=== PATIENT | female | born 1950 | race Caucasian/White ===

== ENCOUNTER → 2016-10-09 | Outpatient (CLI) | payer OTHER ==
[2016-10-09 12:43] LABS: ABSOLUTE BASOPHILS # (AUTO) 0.1 10^3/uL (0.0-0.2); ABSOLUTE EOSINOPHILS # (AUTO) 0.1 10^3/uL (0.0-0.6); ABSOLUTE LYMPHOCYTES (AUTO) 1.5 10^3/uL (0.5-4.7); ABSOLUTE MONOCYTES (AUTO) 0.7 10^3/uL (0.1-1.4); BASOPHILS % (AUTO) 0.9 % (0-2); EOSINOPHILS % (AUTO) 0.9 % (0-6); HEMATOCRIT 42.4 % (36.0-47.0); HEMOGLOBIN 14.1 g/dL (12.0-15.5); HGB HCT DIFFERENCE -0.1; LYMPHOCYTES % (AUTO) 20.7 % (13-45); MEAN CORPUSCULAR HGB CONC 33.1 g/dL (32.0-36.0); MEAN CORPUSCULAR VOLUME 91 fl (80-97); MONOCYTES % (AUTO) 9.3 % (3-13); RED BLOOD COUNT 4.68 10^6/uL (3.72-5.28); RED CELL DISTRIBUTION WIDTH 14.3 % (11.5-14.0); SEGMENTED NEUTROPHILS % (AUTO) 68.2 % (42-78); WHITE BLOOD COUNT 7.3 10^3/uL (4.0-10.5)
[2016-10-09 12:56] LABS: ANION GAP 17 (5-19); BLOOD UREA NITROGEN 15 mg/dL (7-20); CALCIUM 9.4 mg/dL (8.4-10.2); CARBON DIOXIDE 20 mmol/L (22-30); CHLORIDE 94 mmol/L (98-107); CREATININE RESULT 1.16 mg/dL (0.52-1.25); GLUCOSE 71 mg/dL (75-110); POTASSIUM 5.4 mmol/L (3.6-5.0); SODIUM 131.3 mmol/L (137-145)
== END ==
LOC: OD 11:34
PROVIDERS: ATTEND Surgery
DX: Z01.812 Encounter for preprocedural laboratory examination (principal); Z79.899 Other long term (current) drug therapy
CPT/HCPCS: 36415; 80048; 85025

== ENCOUNTER → 2019-10-21 | Outpatient (CLI) | payer OTHER ==
--- NOTE | 2019-10-21 09:24 | RADIOLOGY REPORT (SQ) ---
EXAM DESCRIPTION: CHEST PA/LATERAL COMPLETED DATE/TIME: 10/21/2019 9:04 am REASON FOR STUDY: ACUTE BRONCHITIS, UNSPECIFIED COMPARISON: None. EXAM PARAMETERS: NUMBER OF VIEWS: two views TECHNIQUE: Digital Frontal and Lateral radiographic views of the chest acquired. RADIATION DOSE: NA LIMITATIONS: none FINDINGS: LUNGS AND PLEURA: Hyperinflation of the lungs and some flattening of the diaphragms. Mil d prominence of the interstitial markings may be on a chronic basis. No acute pulmonary consolidatio n. No pneumothorax or pleural effusion. MEDIASTINUM AND HILAR STRUCTURES: No masses or contour abnormalities. HEART AND VASCULAR STRUCTURES: Heart normal size. No evidence for failure. BONES: No acute findings. HARDWARE: None in the chest. OTHER: No other significant finding. IMPRESSION: 1. Chronic mild prominence of the interstitial markings in the lungs may be on a chroni c basis. No acute pulmonary consolidation. TECHNICAL DOCUMENTATION: JOB ID: [id number] 2010 [employer]- All Rights Reserved Reading location - IP/workstation name: [email or web address]
== END ==
LOC: RAD 08:45
PROVIDERS: ATTEND Family Medicine
DX: J20.9 Acute bronchitis, unspecified (principal)
CPT/HCPCS: 71046

== ENCOUNTER 2020-03-24 10:19 | Inpatient (IN) | payer MEDICARE, OTHER ==
[2020-03-24] MEDS: NORMAL SALINE 1000 ML 1,000 ML IV PRN ×2 (10:28→11:05)
[2020-03-24] MEDS ORDERED: LORAZEPAM INJ 2 MG/1 ML VIAL IV ONE (10:31)
[2020-03-24] MEDS ORDERED: ETOMIDATE INJ/PF 20 MG/10 ML SDV IV ONE ×2 (10:55→20:40)
[2020-03-24] MEDS ORDERED: SUCCINYLCHOLINE CHLORIDE INJ 200 MG/10 ML VIAL IV ONE (10:55)
--- NOTE | 2020-03-24 10:59 | ER Document Report ---
ED General - General Stated Complaint: UNRESPONSIVE Time Seen by Provider: 03/24/20 10:51 Mode of Arrival: Medic Information source: Relative, Emergency Med Personnel Cannot obtain history due to: Unstable vital signs, Altered mental status Notes: Patient is a 69-year-old female presenting to the emergency department by EMS chief complaint of altered mental status. EMS state that they were called to the family house because of patient's altered mental status however when they got there patient was significantly bradycardic and was not maintaining her own airway they were successful in getting a 22-gauge IV but otherwise were not able to intubate the patient and were maintaining the patient in route. Family when they arrive state that the patient has been sick for the past week has had diarrhea after a change in her omeprazole. They state that the patient has become more agitated and less responsive until this morning the patient seemed to have a near syncopal event. There is been no sick contacts the patient has been quarantined at home for the past several months. Patient's daughter does state that the patient does still smoke but not near what she used to. Remainder of HPI and review of systems is unobtainable initially secondary to patient's condition. TRAVEL OUTSIDE OF THE [place] IN LAST 30 DAYS: No - HPI Onset: This morning Onset/Duration: Sudden Quality of pain: No pain Associated symptoms: Chills, Diarrhea, Shortness of breath, Slow to respond, Weakness Exacerbated by: Denies Relieved by: Denies Similar symptoms previously: Yes Recently seen / treated by doctor: No - Related Data Allergies/Adverse Reactions: Unable to Assess Allergy (Verified 03/24/20 13:31) Past Medical History - General Information source: Relative Cannot obtain history due to: Unstable vital signs, Altered mental status - Social History Smoking Status: Current Every Day Smoker Cigarette use (# per day): No Chew tobacco use (# tins/day): No Smoking Education Provided: No Frequency of alcohol use: None Drug Abuse: None Lives with: Family Family History: Other Patient has suicidal ideation: No Patient has homicidal ideation: No Review of Systems - Review of Systems -: Yes ROS unobtainable due to patient's medical condition Physical Exam - Vital signs Vitals: Resp 14 03/24/20 10:19 - Notes Notes: PHYSICAL EXAMINATION: GENERAL: Patient is a 69-year-old female appears older than stated age, presenting to the emergency department via EMS with unstable vital signs, bradycardia and low respiratory rate as well as altered mental status HEAD: Atraumatic, normocephalic. EYES: Conjunctiva are minimally injected ENT: nares patent, oropharynx clear without exudates. Tacky mucous membranes. NECK: Normal range of motion, supple without lymphadenopathy, no appreciable JVD LUNGS: Poor inspiratory expiratory effort HEART: Bradycardic rate ABDOMEN: Soft, nontender, absent bowel sounds. No guarding, no rebound. No masses appreciated. EXTREMITIES: Patient has 1+ edema to lower extremities, passive range of motion without crepitus distal fingers and toes are slightly cyanotic NEUROLOGICAL: [place] Coma Scale of 4 minimally responsive to noxious stimuli no obvious focal neuro deficit was able to be assessed there is no facial asymmetry appreciated SKIN: Pallorous distally cyanotic and cold to the touch Course - Re-evaluation Re-evalutation: 03/24/20 13:31 At time of presentation from EMS patient was transferred to hospital bed and cardiac rehabilitation program director is established. There was no spontaneous protection of the patient's airway and decision was made to electively intubate the patient using rapid sequence intubation. Patient was connected to pacemaker and being paced at 80 secondary to the severe bradycardia on presentation. Etomidate and succinylcholine were used for sedation and paralysis patient was successfully intubated on the first attempt using a 7.5 endotracheal tube with cough. Tube was secured by commercial device by respiratory at 21 cm at the gums. There was positive colorimetric change and condensation in the tube as well as positive lung sounds bilaterally. Patient was also found to be hypothermic and IV fluids were established using a fluid warmer. We did give the patient 1 mg of Ativan and soft restraints secondary to patient response to intubation. Because of the poor vasculature of the patient and the small size of IVs were obtained central line was placed by me to the right internal jugular vein. NG tube/OG tube was placed by nursing staff at my request as was a temperature Hammond catheter. Blood work was obtained and sent to the lab urine was sent. Portable chest x- ray was obtained. 03/24/20 13:39 At approximately 1144 nursing staff notified me that the patient was once again decompensating and her blood pressure was unobtainable. Visualization of cardiac movement with the ultrasound demonstrated a heart rate of less than 20 CPR was started. Patient was given 1 mg of atropine and subsequently 1 mg of epinephrine. At 1150 3 repeat pulse check was obtained with a return of spontaneous circulation. At this time the patient was once again placed on a pacer and we had obtained a heart rate of 66. Patient did receive 1 amp of glucose at 1158 secondary to lab showing a markedly low glucose level and patient started on 250 cc an hour of D5 LR. I did speak with the patient's daughter at great length advised her of the mother's severe condition and the fact that she would be moved to the intensive care unit and will be having her medical management taken care of there at this point. The daughter states that she wants her mother to be a full code. Daughter once again reiterated that she did not believe that the mother has been exposed to anyone with coronavirus. I have consulted with Dr. Vences several times during the course of caring for this patient he is agreeable with admission of the patient to the ICU. 03/24/20 13:43 Please see nurses notes for timing of medications, intubation and central line placement. - Vital Signs Vital signs: Temp Pulse Resp BP Pulse Ox 16 41/13 L 72 L 03/24/20 12:20 03/24/20 12:20 03/24/20 13:00 - Laboratory Result Diagrams: 03/24/20 10:32 03/24/20 10:32 Laboratory results interpreted by me: 03/24/20 03/24/20 03/24/20 10:32 10:32 10:32 WBC 27.4 H RBC 3.48 L Hgb 11.9 L MCV 114 H MCH 34.4 H MCHC 30.2 L RDW 21.9 H Seg Neuts % (Manual) 92 H Lymphocytes % (Manual) 3 L Monocytes % (Manual) 2 L Abs Neuts (Manual) 26.0 H Carbonic Acid ABG pH ABG pCO2 ABG HCO3 ABG Total CO2 ABG O2 Saturation Chloride 111 H Carbon Dioxide < 5 L* BUN 50 H Creatinine 3.41 H Est GFR ( Amer) 16 L Est GFR (MDRD) Non-Af 13 L Glucose 31 L* POC Glucose Lactic Acid AST 83 H Ammonia Creatine Kinase 1342 H CK-MB (CK-2) 18.10 H NT-Pro-B Natriuret Pep 03244 H Albumin 3.1 L Lipase 11305.4 H 03/24/20 03/24/20 03/24/20 11:03 11:03 11:35 WBC RBC Hgb MCV MCH MCHC RDW Seg Neuts % (Manual) Lymphocytes % (Manual) Monocytes % (Manual) Abs Neuts (Manual) Carbonic Acid 1.40 H ABG pH 6.64 L* ABG pCO2 46.4 H ABG HCO3 4.8 L ABG Total CO2 6.3 L ABG O2 Saturation 73.3 L Chloride Carbon Dioxide BUN Creatinine Est GFR ( Amer) Est GFR (MDRD) Non-Af Glucose POC Glucose Lactic Acid 3.3 H AST Ammonia 102.9 H Creatine Kinase CK-MB (CK-2) NT-Pro-B Natriuret Pep Albumin Lipase 03/24/20 12:35 WBC RBC Hgb MCV MCH MCHC RDW Seg Neuts % (Manual) Lymphocytes % (Manual) Monocytes % (Manual) Abs Neuts (Manual) Carbonic Acid ABG pH ABG pCO2 ABG HCO3 ABG Total CO2 ABG O2 Saturation Chloride Carbon Dioxide BUN Creatinine Est GFR ( Amer) Est GFR (MDRD) Non-Af Glucose POC Glucose 323 H Lactic Acid AST Ammonia Creatine Kinase CK-MB (CK-2) NT-Pro-B Natriuret Pep Albumin Lipase - Diagnostic Test Radiology reviewed: Reports reviewed - EKG Interpretation by Me EKG shows normal: Sinus rhythm Rate: Bradycardia Rhythm: NSR When compared to previous EKG there are: Previous EKG unavailable Procedures - Central Line Right Internal jugular Time completed: 10:39 Consent obtained: No Central line pre-insertion: Sterile PPE donned, Chloraprep applied, Sterile drapes applied Central line size (Fr.): 7 Central line lumen type: Triple Anesthetic type: 1% Lidocaine mL's of anesthesia: 2 Ultrasound guided: Yes Line secured with sutures: Yes Central line post-insertion: Blood return from lumens, Biopatch applied, Sutured, Sterile dressing applied, Position confirmed w/ CXR Number of attempts: 1 Complications: No - Intubation Orotracheal Time of Intubation: 10:25 Airway evaluation: Normal anatomy Mallampati Classification: Class 1 Medications: Etomidate, Succinylcholine Intubation method: Orotracheal Blade type: Chiquita Blade size: 3 ETT size: 7.5 ETT secured at: Gums ETT secured at (cm): 21 Breath Sounds after Intubation: Equal End tidal CO2 confirmed: Yes Post Intubation Xray: Yes Intubation Complications: No complications Critical Care Note - Critical Care Note Total time excluding time spent on procedures (mins): 50 Comments: Please allow 50 minutes of critical care time spent obtaining history from patient or surrogate, discussions with consultants, development of treatment plan with patient or surrogate, evaluation of patient's response to treatment, examination of patient. This also includes ordering and reviewing laboratory, EKG and / or radiologic studies, performing and reassessing treatments and interventions as well as reviewing previous visits and old charts. This is exclusive of separately billable procedures. Discharge - Discharge Clinical Impression: Bradycardia, Serum ammonia increased Hypotension Qualifiers: Hypotension type: unspecified hypotension type Qualified Code(s): I95.9 - Hypotension, unspecified Altered mental status Qualifiers: Altered mental status type: coma Coma depth: [place] coma 3-8 Coma timing: at arrival to emergency department Qualified Code(s): R40.2432 - [place] coma scale score 3-8, at arrival to emergency department ARF (acute renal failure) Qualifiers: Acute renal failure type: unspecified Qualified Code(s): N17.9 - Acute kidney failure, unspecified Condition: Serious Disposition: ADMITTED INPATIENT Admitting Provider: Esmer ([facility]) Unit Admitted: ICU
[2020-03-24 11:28] LABS: ALBUMIN 3.1 g/dL (3.5-5.0); ALKALINE PHOSPHATASE 110 U/L (38-126); ASPARTATE AMINO TRANSFERASE 83 U/L (14-36); BILIRUBIN,DIRECT 0.2 mg/dL (0.0-0.4); BILIRUBIN,TOTAL 0.4 mg/dL (0.2-1.3); BLOOD UREA NITROGEN 50 mg/dL (7-20); CALCIUM 9.7 mg/dL (8.4-10.2); CHLORIDE 111 mmol/L (98-107); CREATINE KINASE 1342 U/L (30-135); TOTAL PROTEIN 6.4 g/dL (6.3-8.2)
[2020-03-24 11:39] LABS: CREATINE KINASE MB 18.1 ng/mL (<4.55)
--- NOTE | 2020-03-24 11:47 | RADIOLOGY REPORT (SQ) ---
EXAM DESCRIPTION: CHEST SINGLE VIEW IMAGES COMPLETED DATE/TIME: 03/24/2020 11:30 am REASON FOR STUDY: tube placement COMPARISON: 10/21/2019 EXAM PARAMETERS: NUMBER OF VIEWS: One view. TECHNIQUE: Single frontal radiographic view of the chest acquired. RADIATION DOSE: NA LIMITATIONS: None. FINDINGS: LUNGS AND PLEURA: Patchy left basilar opacities with small left pleural effusion. No pneu mothorax. MEDIASTINUM AND HILAR STRUCTURES: No masses. Contour normal. HEART AND VASCULAR STRUCTURES: Normal heart size. Vascular calcifications. BONES: No acute findings. HARDWARE: Endotracheal tube tip overlies midthoracic trachea. Enteric tube tip overlies gastric body . Right internal jugular based central venous catheter tip at right atrium. OTHER: Defibrillator pads overlie chest. IMPRESSION: Patchy left basilar opacities suspicious for pneumonia. Trace left effusion. Endotracheal tube tip overlies midthoracic trachea. Additional lines and tubes as above. TECHNICAL DOCUMENTATION: JOB ID: [id number] 2010 [employer]- All Rights Reserved Reading location - IP/workstation name: [email or web address]
[2020-03-24 11:48] LABS: HEMATOCRIT 39.6 % (36.0-47.0); HEMOGLOBIN 11.9 g/dL (12.0-15.5); PLATELET COUNT 333 10^3/uL (150-450); RED CELL DISTRIBUTION WIDTH 21.9 % (11.5-14.0); WHITE BLOOD COUNT 27.4 10^3/uL (4.0-10.5)
[2020-03-24 11:55] LABS: MEAN CORPUSCULAR HEMOGLOBIN 34.4 pg (27.0-33.4); MEAN CORPUSCULAR VOLUME 114 fl (80-97); RED BLOOD COUNT 3.48 10^6/uL (3.72-5.28)
[2020-03-24 11:56] LABS: MEAN CORPUSCULAR HGB CONC 30.2 g/dL (32.0-36.0)
[2020-03-24] MEDS ORDERED: DEXTROSE 50%-WATER 25 GM/50 ML DISP.SYRIN IV ONE (11:58)
[2020-03-24 12:00] LABS: ABSOLUTE LYMPHOCYTES# (MANUAL) 0.8 10^3/uL (0.5-4.7); ABSOLUTE MONOCYTES # (MANUAL) 0.5 10^3/uL (0.1-1.4); ANISOCYTOSIS 3+; BAND NEUTROPHILS % (MANUAL) 3 % (3-5); BASOPHILS % (MANUAL) 0 % (0-2); EOSINOPHILS % (MANUAL) 0 % (0-6); LYMPHOCYTES % (MANUAL) 3 % (13-45); MONOCYTES % (MANUAL) 2 % (3-13); POIKILOCYTOSIS 1+; POLYCHROMASIA SLIGHT; SEGMENTED NEUTROPHILS % (MAN) 92 % (42-78); TOTAL CELLS COUNTED 100; TROPONIN I 0.061 ng/mL
[2020-03-24 12:01] LABS: OVALOCYTES 1+; PLATELET COMMENT ADEQUATE; TARGET CELLS 1+; TEAR DROP CELLS 1+
[2020-03-24 12:04] LABS: GLUCOSE 31 mg/dL (75-110)
[2020-03-24] MEDS ORDERED: AZITHROMYCIN INJ 500 MG VIAL IV ONE (12:06)
[2020-03-24 12:14] LABS: ARTERIAL BLOOD BASE EXCESS -31.5 mmol/L; ARTERIAL BLOOD HCO3 4.8 mmol/L (20-24); ARTERIAL BLOOD O2 SATURATION 73.3 % (94-98); ARTERIAL BLOOD PCO2 46.4 mmHg (35-45); ARTERIAL BLOOD PH 6.64 (7.35-7.45); ARTERIAL BLOOD TOTAL CO2 6.3 mmol/L (21-25)
[2020-03-24 12:18] LABS: CARBON DIOXIDE < 5 mmol/L (22-30)
[2020-03-24 12:19] LABS: ARTERIAL BLOOD FIO2 100%
[2020-03-24] MEDS ORDERED: SODIUM BICARBONATE 4.2% INJ (2.5 MEQ/5 ML) VIAL INJ ONE (12:19)
[2020-03-24] MEDS ORDERED: CEFTRIAXONE 1 GM/D5W RTU 1 GM/50 ML RTUPB IV ONE (12:30)
[2020-03-24] MEDS ORDERED: IPRATROPIUM/ALBUTEROL 0.5-2.5 MG/3 ML AMPUL NEB PRN (13:07)
[2020-03-24] MEDS ORDERED: NORMAL SALINE 1000 ML 1,000 ML IV PRN (13:07)
[2020-03-24] MEDS ORDERED: PHARMACY COMMUNICATION ORDER MC NR (13:15)
--- NOTE | 2020-03-24 13:28 | CRITICAL CARE ADMISSION REPORT ---
HPI Date:: 03/24/20 Time:: 12:30 Reason for ICU Reason:: Cardiac arrest, intubated, unstable VS Admission Date/Time & PCP: Admission Date/Time: 03/24/20 13:11 Primary Care Provider: SE AVALOS MD HPI: This patient is a 69 yo woman who came to the ED by ambulance after being found by duaghter with altered mental status. She has not been feeling well for about 3 weeks. She was bradycardic and not well responsive. Attempts were made to intubate but were unsuccessful until she came to the ED. Her daughter requests full code status. PMHx is not impressive. Her lab work shows very high lipase and ammonia. This patient is critically ill. History obtained from:: ED Markus FAUSTIN. - Diagnosis/Plan (1) Cardiac arrest Is this a current diagnosis for this admission?: Yes Plan: DAVID biggs followed in the ED. She is not on pressors yet. She may arrest again. The exact reason is not known (2) Altered mental status Qualifiers: Altered mental status type: disorientation Qualified Code(s): R41.0 - Disorientation, unspecified Is this a current diagnosis for this admission?: Yes Plan: The exact reason is not kn own but preceeded her arrest. Ammonia of 100 has likely gone on more than 1 day. (3) Hypotension Is this a current diagnosis for this admission?: Yes Plan: She has been hypotensive and it has been difficult to get an accurate BP. She will need an A-line. The only pulse palpable is L femoral. (4) Serum ammonia increased Is this a current diagnosis for this admission?: Yes Plan: Level is 100, why is not known. (5) ARF (acute renal failure) Qualifiers: Acute renal failure type: unspecified Qualified Code(s): N17.9 - Acute kidney failure, unspecified Is this a current diagnosis for this admission?: Yes Plan: Cr thus far on presentation is 3.3. I expect this to get worse. Plan Summary: Admit to the ICU and continue search for cause of arrest. Primary cardiac cause is high. Past Medical History Past Medical History: Not well known. Medical History: None Past Surgical History Past Surgical History: Not known Social/Family History - Social History Lives with: Family Smoking Status: Current Every Day Smoker Review of Systems ROS unobtainable: Due to endotracheal tube, Due to mental status Physical Exam Vital Signs: Intake & Output 03/23/20 03/24/20 03/25/20 06:59 06:59 06:59 Intake Total 1999 Balance 1999 General appearance: PRESENT: obese Head exam: PRESENT: atraumatic, normocephalic Eye exam: PRESENT: conjunctiva pink, EOMI, PERRLA. ABSENT: scleral icterus Ear exam: PRESENT: normal external ear exam Mouth exam: PRESENT: moist, tongue midline Respiratory exam: PRESENT: clear to auscultation nely. ABSENT: rales, rhonchi, wheezes Cardiovascular exam: PRESENT: RRR Pulses: PRESENT: other - Weak pulses throughout Vascular exam: PRESENT: pallor GI/Abdominal exam: PRESENT: normal bowel sounds, soft. ABSENT: distended, guarding, mass, organolmegaly, rebound, tenderness Rectal exam: PRESENT: deferred Gentrourinary exam: PRESENT: indwelling catheter Extremities exam: PRESENT: full ROM. ABSENT: calf tenderness, clubbing, pedal edema Musculoskeletal exam: PRESENT: normal inspection Neurological exam: PRESENT: other - GCS 3 Skin exam: PRESENT: other - Duskiness of fingers from constriction. Tubes/Lines: PRESENT: Endotracheal Tube, Central Line, Nasogastic Tube Laboratory/Radiographs Laboratory Results: 03/24/20 10:32 03/24/20 10:32 03/24/20 03/24/20 03/24/20 10:32 10:32 11:03 WBC 27.4 H RBC 3.48 L Hgb 11.9 L Hct 39.6 MCV 114 H MCH 34.4 H MCHC 30.2 L RDW 21.9 H Plt Count 333 Seg Neutrophils % Not Reportable Carbonic Acid HCO3/H2CO3 Ratio ABG pH ABG pCO2 ABG pO2 ABG HCO3 ABG O2 Saturation ABG Base Excess FiO2 Sodium 141.1 Potassium 5.0 Chloride 111 H Carbon Dioxide < 5 L* Anion Gap Not Reportable BUN 50 H Creatinine 3.41 H Est GFR ( Amer) 16 L Glucose 31 L* Lactic Acid 3.3 H Calcium 9.7 Total Bilirubin 0.4 AST 83 H Alkaline Phosphatase 110 Ammonia Total Protein 6.4 Albumin 3.1 L Lipase 53570.4 H 03/24/20 03/24/20 11:03 11:35 WBC RBC Hgb Hct MCV MCH MCHC RDW Plt Count Seg Neutrophils % Carbonic Acid 1.40 H HCO3/H2CO3 Ratio 3:1 ABG pH 6.64 L* ABG pCO2 46.4 H ABG pO2 82.0 ABG HCO3 4.8 L ABG O2 Saturation 73.3 L ABG Base Excess -31.5 FiO2 100% Sodium Potassium Chloride Carbon Dioxide Anion Gap BUN Creatinine Est GFR ( Amer) Glucose Lactic Acid Calcium Total Bilirubin AST Alkaline Phosphatase Ammonia 102.9 H Total Protein Albumin Lipase 03/24/20 03/24/20 10:32 10:32 Creatine Kinase 1342 H CK-MB (CK-2) 18.10 H Troponin I 0.061 NT-Pro-B Natriuret Pep 30557 H Impressions: Chest X-Ray 03/24/20 10:52 IMPRESSION: Patchy left basilar opacities suspicious for pneumonia. Trace left effusion. Endotracheal tube tip overlies midthoracic trachea. Additional lines and tubes as above. EKG: NSR PVCs. All labs, radiographs, diagnostic studies and EKGs were personally reviewed: Yes In addition, reports of radiographic and diagnostic studies were read: Yes Critical Time Critical Time (minutes): 45 -: The care of a critically ill patient is dynamic. This note represents a static moment in the admission process. Orders and treatments may be given simultaneously and urgently, and time is not healthcare representative of the treatment process. This patient requires Critical Care secondary to life threatening organ or limb dysfunction. Without Critical Care services, the patient is at risk for increased mortality and morbidity.
[2020-03-24] MEDS ORDERED: EPINEPHRINE INJ/PF 1 MG/1 ML AMPULE ONE ×5 (13:57→20:39)
[2020-03-24] MEDS ORDERED: HEPARIN SOD (PORCINE) 5,000 UNIT/ML 1 ML VIAL SUBCUT SCH (14:00)
[2020-03-24] MEDS ORDERED: PANTOPRAZOLE SODIUM 40 MG VIAL IV SCH (14:00)
[2020-03-24 14:12] LABS: INTERNATIONAL RATION (INR) 1.44; PROTHROMBIN TIME 17.7 SEC (11.4-15.4)
[2020-03-24] MEDS ORDERED: EPINEPHRINE INJ 1 MG/10 ML DISP.SYRIN ONE ×6 (14:49→19:01)
[2020-03-24] MEDS: DEXTROSE 5%-WATER 250 ML with EPINEPHRINE/PF 1 MG IV PRN ×14 (15:29→20:42)
[2020-03-24 15:38] LABS: ARTERIAL BLOOD BASE EXCESS -32.7 mmol/L; ARTERIAL BLOOD H2CO3 1.09 mmol/L (1.05-1.35); ARTERIAL BLOOD HCO3 3.6 mmol/L (20-24); ARTERIAL BLOOD PCO2 36.1 mmHg (35-45); ARTERIAL BLOOD PO2 343.4 mmHg (80-100); ARTERIAL BLOOD TOTAL CO2 4.7 mmol/L (21-25)
[2020-03-24 15:39] LABS: ARTERIAL BLOOD FIO2 100%
[2020-03-24 15:41] LABS: ARTERIAL BLOOD PH 6.62 (7.35-7.45)
[2020-03-24] MEDS ORDERED: SODIUM BICARBONATE 8.4% INJ 50 MEQ/50 ML DISP.SYRIN ONE ×2 (16:34→19:01)
[2020-03-24 17:46] LABS: ANION GAP 16 (5-19); BLOOD UREA NITROGEN 40 mg/dL (7-20); CALCIUM 7.3 mg/dL (8.4-10.2); CHLORIDE 104 mmol/L (98-107); POTASSIUM 5.7 mmol/L (3.6-5.0)
[2020-03-24 18:04] LABS: CARBON DIOXIDE 6 mmol/L (22-30); GLUCOSE 701 mg/dL (75-110)
--- NOTE | 2020-03-24 18:08 | XCELERA REPORT ---
[address] [address] Transthoracic Echocardiogram Report Name: LIONEL AGEE Age: 69 yrs Gender: Female : 1950 Patient Status: Inpatient Patient Location: ICU^605^A Study Date: 03/24/2020 03:22 PM Height: 65 in Weight: 126 lb BSA: 1.6 m2 Procedure: A two-dimensional transthoracic echocardiogram with color flow and Doppler was performed. The study was technically difficult with many images being suboptimal in quality. Images were not obtained from all of the standard acoustic windows due to the limited scope of the study. Reason For Study: Cardiac arrest with no known cause History: Cardiac arrest. Ordering Physician: NETTIE BAI Performed By: Gloria Stone Interpretation Summary The left ventricle is mildly to moderately dilated. There is normal left ventricular wall thickness. LV EF is 25% Left ventricular systolic function is severely reduced. Doppler measurements suggest impaired left ventricular relaxation, which is associated with grade I/IV or mild diastolic dysfunction All LV apical segments are akinetic.The rest of the LV washburn are severely hypokinetic. There is no thrombus. Cannot assess fo ASD,VSD o PFO. The right ventricle is not well visualized secondary to technical limitations Right atrium not well visualized secondary to technical limitations The left atrium is moderately dilated. There is no evidence of mitral valve prolapse. There is no vegetation seen on the mitral valve. There is no mitral valve stenosis. There is a mild amount of mitral regurgitation There is asmall mobile calcifide structure which could be a healed /calcified small vegetaation. There is calcified aotic valve .Althogh peak AV gradient is 19 mm of HG , with a mean gradient of 10,I suspect there is sevare Aortic Stenosis. There is a mild amount of aortic regurgitation There is no tricuspid stenosis. There is a trace to mild amount of tricuspid regurgitation There is mild pulmonary hypertension by echo RVSP is 38 mm of Hg , with RA mean of 10. There is no pulmonic valvular stenosis. There is a trace amount of pulmonic regurgitation There is no pericardial effusion. MMode/2D Measurements & Calculations RVDd: 2.3 cm LVIDd: 4.7 cm FS: 6.7 % Ao root diam: 2.3 cm IVSd: 1.1 cm LVIDs: 4.4 cm EDV(Teich): Ao root area: LVPWd: 0.91 cm 100.6 ml 4.2 cm2 ESV(Teich): 85.4 ml EF(Teich): 15.1 % LVOT diam: 1.9 cm EDV(MOD-sp4): SV(MOD-sp4): LVOT area: 98.5 ml 27.9 ml ESV(MOD-sp4): 2.8 cm2 70.7 ml EF(MOD-sp4): 28.3 % Doppler Measurements & Calculations MV E max latonia: MV dec slope: Ao V2 max: AI max latonia: 87.3 cm/sec 219.9 cm/sec 389.8 cm/sec MV A max latonia: 503.7 cm/sec2 Ao max PG: AI max P.8 mmHg 138.3 cm/sec MV dec time: 19.3 mmHg AI dec slope: MV E/A: 0.63 0.17 sec Ao V2 mean: 150.7 cm/sec 237.5 cm/sec2 AI P1/2t: 480.8 msec Ao mean P.2 mmHg Ao V2 VTI: 29.8 cm MADHAVI(I,D): 1.00 cm2 MADHAVI(V,D): 0.81 cm2 LV V1 max PG: MR max latonia: SV(LVOT): 29.7 ml PA V2 max: 1.7 mmHg 540.8 cm/sec 76.4 cm/sec LV V1 mean PG: MR max PG: PA max P.3 mmHg 0.77 mmHg 117.0 mmHg LV V1 max: 64.5 cm/sec LV V1 mean: 40.2 cm/sec LV V1 VTI: 10.7 cm PI end-d latonia: TR max latonia: 116.4 cm/sec 256.2 cm/sec TR max P.6 mmHg Left Ventricle The left ventricle is mildly to moderately dilated. There is normal left ventricular wall thickness. LV EF is 25%. Left ventricular systolic function is severely reduced. Doppler measurements suggest impaired left ventricular relaxation, which is associated with grade I/IV or mild diastolic dysfunction. All LV apical segments are akinetic.The rest of the LV washburn are severely hypokinetic. There is no thrombus. Cannot assess fo ASD,VSD o PFO. Right Ventricle The right ventricle is not well visualized secondary to technical limitations. Atria Right atrium not well visualized secondary to technical limitations. The left atrium is moderately dilated. Mitral Valve There is no evidence of mitral valve prolapse. There is no vegetation seen on the mitral valve. There is no mitral valve stenosis. There is a mild amount of mitral regurgitation. Aortic Valve There is asmall mobile calcifide structure which could be a healed /calcified small vegetaation. There is calcified aotic valve .Althogh peak AV gradient is 19 mm of HG , with a mean gradient of 10,I suspect there is sevare Aortic Stenosis. There is a mild amount of aortic regurgitation. Tricuspid Valve There is no tricuspid stenosis. There is a trace to mild amount of tricuspid regurgitation. There is mild pulmonary hypertension by echo. RVSP is 38 mm of Hg , with RA mean of 10. Pulmonic Valve There is no pulmonic valvular stenosis. There is a trace amount of pulmonic regurgitation. Great Vessels The aortic root is not well visualized. The inferior vena cava was not visualized. Effusions There is no pericardial effusion. : NETTIE BAI Lakshmi
[2020-03-24] MEDS ORDERED: VASOPRESSIN INJ 20 UNIT/1 ML VIAL ONE (18:31)
[2020-03-24] MEDS ORDERED: DOBUTAMINE HCL/D5W 500 MG/250 ML RTUINJ IV PRN (19:49)
[2020-03-24] MEDS ORDERED: VASOPRESSIN INJ 20 UNIT/1 ML VIAL IV ONE (20:15)
[2020-03-24] MEDS ORDERED: ROCURONIUM BROMIDE INJ 50 MG/5 ML VIAL IV ONE (20:40)
--- NOTE | 2020-03-24 21:25 | Death Summary ---
Summary Date : 03/24/20 Time of :: 21:05 Autopsy: No Resuscitation Status: Full Code - Final Diagnosis (1) Multi-organ system dysfunction Is this a current diagnosis for this admission?: No Hospital Course:: 69 year old female who presented to [facility] ER this AM after family called EMS due to patient not feeling well. At the home EMS reports patient became bradycardic and unresponsive attempted to intubate and was taken to the ED. The patient experienced cardiac arrest again in the ER and ROSC was obtained. ETT placed and patient was transferred to ICU. The patients work up revealed acute renal failure and liver failure with elevated creatinine and elevated ammonia levels. The patient also had acute respiratoryfailure which required mechanical ventilatory support. The patient again coded tonight and after two rounds of ACLS was completed there was no return of spontaneous circulation. The patient was pronounced at 2105. At this time there are no audible heart tones and asystole was confirmed in two leads and there ar babatunde spontaneous resp effort. The patients daughter was called and informed of the patients .
[2020-03-24 23:36] VITALS: BP 95/18
[2020-03-25] MEDS ORDERED: NORMAL SALINE INJ/PF 0.9% 10 ML SDV IV PRN (00:18)
--- NOTE | 2020-03-25 14:07 | EKG REPORT ---
SEVERITY:- ABNORMAL ECG - SINUS RHYTHM VENTRICULAR PREMATURE COMPLEX NONSPECIFIC IVCD WITH LAD CONSIDER INFERIOR INFARCT : Confirmed by: Frieda Tripp 25-Mar-2020 14:05:47
[2020-03-27 13:09] LABS: PATH REVIEW PATHOLOGIST REVIEWED
== END 2020-03-24 21:05 | disposition left against medical advice (07) | DRG 296 ==
LOC: ER 10:19 → EH 13:11 → ICU 14:38
PROVIDERS: ADMIT Anesthesiology; ATTEND Anesthesiology
PROC: 0BH17EZ Insertion of Endotracheal Airway into Trachea, Via Natural or Artificial Opening (ICD-10-PCS; principal; 2020-03-24)
PROC: 5A1935Z Respiratory Ventilation, Less than 24 Consecutive Hours (ICD-10-PCS; 2020-03-24)
PROC: 05HM33Z Insertion of Infusion Device into Right Internal Jugular Vein, Percutaneous Approach (ICD-10-PCS; 2020-03-24)
PROC: 5A12012 Performance of Cardiac Output, Single, Manual (ICD-10-PCS; 2020-03-24)
DX: I46.9 Cardiac arrest, cause unspecified (principal); J96.00 Acute respiratory failure, unspecified whether with hypoxia or hypercapnia; N17.9 Acute kidney failure, unspecified; R68.0 Hypothermia, not associated with low environmental temperature; R40.2432 Glasgow coma scale score 3-8, at arrival to emergency department; F17.200 Nicotine dependence, unspecified, uncomplicated; I95.9 Hypotension, unspecified; R41.0 Disorientation, unspecified; Z20.828 Contact with and (suspected) exposure to other viral communicable diseases; K72.90 Hepatic failure, unspecified without coma; Z78.1 Physical restraint status
CPT/HCPCS: 36415; 71045; 80053; 82140; 82550; 82553; 82570; 82803; 82962; 83605; 83690; 83880; 84484; 85025; 85610; 87040; 87635; 92950; 93005; 93010; 93306; 94002; 96361; 96365; 96375; 99291; C9803; J0171; J0330; J0456; J0696; J1250; J2060; J3490; J7030; J7060